=== PATIENT | female | born 1955 | race Caucasian/White ===

== ENCOUNTER 2016-11-08 06:01 | Day surgery (SDC) | payer BC ==
[2016-11-03 09:16] LABS: BASOPHILS 0.2 %; BASOPHILS ABSOLUTE 0.01 10/3/uL (0.0-0.16); EOSINOPHILS 2.1 %; EOSINOPHILS ABSOLUTE 0.09 10/3/uL (0.0-0.53); HEMATOCRIT 40.4 % (36.0-48.0); HEMOGLOBIN 13.3 g/dL (12.0-16.0); IMMATURE GRANULOCYTES 0.5 %; IMMATURE GRANULOCYTES ABSOLUTE 0.02 10/3/uL (0.0-0.11); LYMPHOCYTES 22.6 %; LYMPHOCYTES ABSOLUTE 0.95 10/3/uL (0.67-4.30); MEAN CORPUS HGB CONC 32.9 g/dL (32.0-36.0); MEAN CORPUSCULAR HEMOGLOB 31.8 pg (26.0-34.0); MEAN CORPUSCULAR VOLUME 96.7 fL (80-100); MEAN PLATELET VOLUME 10.4 fL (9.2-13.0); MONOCYTES 6.2 %; MONOCYTES ABSOLUTE 0.26 10/3/uL (0.21-1.20); NEUTROPHILS 68.4 %; NEUTROPHILS ABSOLUTE 2.87 10/3/uL (2.02-8.40); PLATELET COUNT 196 10/3/uL (150-400); RBC DISTRIBUTION WIDTH 13.2 % (12.0-16.0); RED CELL COUNT 4.18 10/6/uL (4.0-5.6)
[2016-11-03 09:18] LABS: MANUAL DIFF NO %; WHITE BLOOD CELLS 4.2 10/3/uL (4.5-10.5)
[2016-11-03 09:23] LABS: PARTIAL THROMBO TIME 23.9 SEC (22.5-37.2)
[2016-11-03 09:26] LABS: BUN (BLOOD UREA NITROGEN) 13 MG/DL (6-23); CALCIUM, SERUM 11.8 MG/DL (8.5-10.4); CHLORIDE, SERUM 107 MMOL/L (96-112); CO2 (CARBON DIOXIDE) 28 MMOL/L (24-34); CREATININE 0.63 MG/DL (0.55-1.02); GFR AFRICAN AMERICAN 113 ML/MIN (>=60); GFR NON AFRICAN AMERICAN 97 ML/MIN (>=60); GLUCOSE, SERUM 101 MG/DL (60-99); POTASSIUM, SERUM 4.3 MMOL/L (3.5-5.3); SODIUM, SERUM 143 MMOL/L (135-148)
--- NOTE | ~2016-11-08 | OP ---
Record Of Operation [facility] [address] [place]. [address] NAME: JULISSA MACIAS : 55 STATUS : REG [facility] PAT#: [id number] AGE: 60 ADM/REG DATE : 11/08/16 MR#: [id number] REPORT SERV DATE: 11/08/16 DICTATED BY: ASHOK CORONA DATE: 11/08/16 REPORT STATUS : Draft TRANSCRIBED BY: DIPESHL DATE: 11/08/16 DATE OF PROCEDURE: 11/08/2016 PROCEDURE: Left inferior parathyroidectomy. PREOPERATIVE DIAGNOSIS: Primary hyperparathyroidism. POSTOPERATIVE DIAGNOSE: Primary hyperparathyroidism. ANESTHESIA: General endotracheal. COMPLICATIONS: None. FINDINGS: The patient was taken the OR and placed in supine position. She then was anesthetized, prepped and draped in standard fashion. Cervical area was injected with 1% Xylocaine with epinephrine. Her low collar incision from her previous right thyroid lobectomy was re-entered. Subplatysmal planes were raised superiorly and inferiorly. The strap muscles were removed from the left thyroid lobe. The sestamibi scan did show possible left inferior enlarged parathyroid gland. Dissection began on the left inferior area with readily apparent significantly enlarged parathyroid gland noted. Circumferential dissection was performed with low-level electrocautery and blunt dissection. Parathyroid adenoma was removed and frozen section was consistent with a parathyroid adenoma. Exploration of the superior pole revealed no abnormal parathyroid gland. Intraoperative PTH fell from a level of approximately 160 down to 22. The wound had been irrigated and suction dried. Small amount of foam placed in the tracheal gutter. Strap muscles were loosely reapproximated with 3-0 chromic suture. Platysma was reapproximated with 3-0 chromic suture. 4-0 Monocryl was used to perform a subcuticular closure. Steri-Strips were placed. The patient was awakened, extubated, and taken to the recovery in good condition. TRENT/SKYLAR Ashok Corona M.D. / [id number] CC: Goldie Randall M.D.
[~2016-11-08 06:01] MED LIST: ALLEGRA180 PO; CELEXA10 PO; CLARIT10 PO; DIOVAN HC1 PO; DIOVAN HC2 PO; DIOVAN HCT160 MG/25 PO; ESTROGEL TD; EXCEDRIN EXTRA1 EACH PO; EXCEDRINE PO; FISH-EPA1000 MG PO; K-TABS10 MEQ PO; KLOR-CON M2020 MEQ PO; LEVOTHYROXIN25 MCG PO; LEVSINTAB PO; LIPITOR20 PO; LOP25 PO; MAGOX4 PO; MOBIC15 MG PO; MOBIC7.5 PO; ORACEA40 MG PO; PRILOSEC40 MG PO; PROTONIX PO; VITAMIN B-121000 MC1 SL; VITAMIN D31000 UNIT PO; X25 PO
[2016-11-08 07:27] LABS: PTH (INTRAOPERATIVE) 136.2 PG/ML (10.0-65.0); PTH TAT 0 Hrs 21 Mins
[2016-11-08 08:56] LABS: PTH (INTRAOPERATIVE) 22.9 PG/ML (10.0-65.0); PTH TAT 0 Hrs 00 Mins
== END 2016-11-08 17:10 | disposition home or self-care (01) ==
LOC: SDC 06:01
PROVIDERS: Otolaryngology
PROC: 0GBP0ZZ Excision of Left Inferior Parathyroid Gland, Open Approach (ICD-10-PCS; principal; 2016-11-08 07:15)
DX: D35.1 Benign neoplasm of parathyroid gland (principal); I10 Essential (primary) hypertension; E21.3 Hyperparathyroidism, unspecified; E78.5 Hyperlipidemia, unspecified; E03.9 Hypothyroidism, unspecified; E78.00 Pure hypercholesterolemia, unspecified; K21.9 Gastro-esophageal reflux disease without esophagitis; G43.909 Migraine, unspecified, not intractable, without status migrainosus; K58.9 Irritable bowel syndrome, unspecified; K44.9 Diaphragmatic hernia without obstruction or gangrene; F41.9 Anxiety disorder, unspecified; M17.9 Osteoarthritis of knee, unspecified; L71.9 Rosacea, unspecified; Z91.09 Other allergy status, other than to drugs and biological substances; Z79.1 Long term (current) use of non-steroidal anti-inflammatories (NSAID); Z79.82 Long term (current) use of aspirin; Z79.899 Other long term (current) drug therapy; Z91.040 Latex allergy status; Z90.49 Acquired absence of other specified parts of digestive tract; Z90.710 Acquired absence of both cervix and uterus; Z98.890 Other specified postprocedural states; Z85.820 Personal history of malignant melanoma of skin; Z92.3 Personal history of irradiation
CPT/HCPCS: 71020; 80048; 83970; 85025; 85730; 88305; 88313; 88331; 93005; A9270-GY; J0690; J2250; J2405; J2710; J3010